=== PATIENT | female | born 1935 | race Caucasian/White ===

== ENCOUNTER 2020-10-04 05:37 | Outpatient (CLI) | payer MEDICARE ==
[~2020-10-04] VITALS: Ht 152.4 cm; Wt 54.5 kg
[~2020-10-04 05:37] MED LIST: HCT25T PO; LEVO125T PO; SIMVASTATIN PO; VERA120T6 PO
[2020-10-04] MEDS ORDERED: LISI10TA25 PO (10:07)
[2020-10-04] MEDS ORDERED: PRED5DRO17 OP (10:07)
[2020-10-04] MEDS ORDERED: [UNRECOGNIZED DRUG - OTHER] OP (10:07)
[2020-10-04] MEDS ORDERED: LATA2.5D19 OP (10:07)
== END 2020-10-04 11:50 | disposition home or self-care (01) ==
LOC: PREOP 05:37
PROVIDERS: ATTEND Surgery
DX: Z01.818 Encounter for other preprocedural examination (principal)

== ENCOUNTER 2020-10-11 09:22 | Day surgery (SDC) | payer MEDICARE ==
[2020-10-11] VITALS (14 sets, daily range): BP systolic 98–159; BP diastolic 48–78
[~2020-10-11] VITALS: Ht 152.4 cm; Wt 54.5 kg
[~2020-10-11 09:22] MED LIST changes: +LATA2.5D19 OP; +LISI10TA25 PO; +NS IV 500 ML 500 ML ONE; +PRED5DRO17 OP; +[UNRECOGNIZED DRUG - OTHER] OP
[2020-10-11] MEDS ORDERED: fentaNYL INJ 100 MCG/2 ML AMP IVP ONE (09:30)
[2020-10-11] MEDS ORDERED: MIDAZOLAM 5 MG/5 ML (VERSED) VIAL IV ONE (09:30)
[2020-10-11] MEDS ORDERED: LIDOCAINE JELLY 2% 6 ML SYRINGE MM PRN (09:30)
[2020-10-11] MEDS ORDERED: NS IV 500 ML 500 ML IV PRN (09:30)
[2020-10-11] MEDS ORDERED: MIDAZOLAM 5 MG/5 ML (VERSED) VIAL ONE ×2 (10:04→10:05)
[2020-10-11] MEDS ORDERED: fentaNYL INJ 100 MCG/2 ML AMP ONE ×2 (10:04)
[2020-10-11] MEDS ORDERED: ONDANSETRON 4 MG/2 ML (SDV) Z0FRAN ONE (10:06)
[2020-10-11] MEDS ORDERED: LIDOCAINE JELLY 2% 6 ML SYRINGE ONE (10:20)
--- NOTE | 2020-10-11 10:21 | Conscious Sedation/ASA ---
Conscious Sedation Pre-Proced Time 10:00 ASA Score 2 For ASA 3 and 4: Consider anesthesia and medical clearance. Also, for patients with a history of failed moderate sedation consider anesthesia. Airway Lungs Heart ASA score ASA 1: a normal healthy patient ASA 2: a patient with a mild systemic disease (mid diabetes, controlled hypertension, obesity ASA 3: a patient with a severe systemic disease that limits activity (angina, COPD, prior Myocardial infarction) ASA 4: a patient with an incapacitating disease that is a constant threat to life (CHF, renal failure) ASA 5: a moribund patient not expected to survive 24 hrs. (ruptured aneurysm) ASA 6: a declared brain- patient whose organs are being harvested. For emergent operations, add the letter E after the classification Mallampati Classification Grade 2 Sedation Plan Analgesia, Amnesia, Plan communicated to team members, Discussed options with patient/fam, Discussed risks with patient/fam The patient is an appropriate candidate to undergo the planned procedure, sedation, and anesthesia. The patient immediately re-assessed prior to indication. DARLINE BRIONES MD Oct 11, 2020 10:21
--- NOTE | 2020-10-11 10:22 | Progress Note-Pre Operative ---
Pre-Operative Progress Note H&P Reviewed The H&P was reviewed, patient examined and no changes noted. Date Seen by Provider: Oct 11, 2020 Time Seen by Provider: 10:00 Date H&P Reviewed: Oct 11, 2020 Time H&P Reviewed: 10:00 Pre-Operative Diagnosis: screening DARLINE Sunshine MD Oct 11, 2020 10:22
--- NOTE | 2020-10-11 10:23 | Discharge Inst-Surgical ---
D/C Lap Instructions-ANSELMO Follow up Activity as tolerated High Fiber Diet 25g or more per day Avoid Alcohol, Caffeine, Spicy [place] and Acid foods. Drink 64 fluid oz or more of fluids per day. Symptoms to Report: Fever over 101 degree F, Nausea/Vomiting If any problems/questions: Contact your physician or go to Emergency Room DARLINE BRIONES MD Oct 11, 2020 10:23
[2020-10-11] MEDS ORDERED: HYDROcodone/APAP 5 MG/325 MG (LORTAB) TAB PO PRN (10:30)
[2020-10-11] MEDS ORDERED: morphine INJ 10 MG/ML 1ML (SYR OR VIAL) IVP PRN ×2 (10:30)
[2020-10-11] MEDS ORDERED: ONDANSETRON 4 MG/2 ML (SDV) Z0FRAN IVP PRN (10:30)
[2020-10-11] MEDS ORDERED: ACETAMINOPHEN 325 MG TABLET PO PRN (10:30)
--- NOTE | 2020-10-11 10:59 | Progress Note-Post Operative ---
Post-Operative Progess Note Surgeon (s)/Expense Clerk (s) Surgeon DARLINE BRIONES MD Expense Clerk: none Pre-Operative Diagnosis screening colo Post-Operative Diagnosis mild chronic stage 1 ext and int hemorrhoids, mild-mod sigmoid diverticulosis. Procedure & Operative Findings Date of Procedure 10/11/20 Procedure Performed/Findings colonoscopy Anesthesia Type cs Estimated Blood Loss Estimated blood loss (mL): minimal Specimens/Packing Specimens Removed none DARLINE BRIONES MD Oct 11, 2020 10:59
--- NOTE | 2020-10-11 15:15 | OPERATIVE REPORT ---
DATE OF SERVICE: 10/11/2020 ATTENDING PRIMARY CARE PHYSICIAN: Daniela Mast MD PREOPERATIVE DIAGNOSIS: Screening colonoscopy. POSTOPERATIVE DIAGNOSES: Mild chronic stage I external and internal hemorrhoids and [id number] sigmoid diverticulosis. PROCEDURE: Colonoscopy. SURGEON: Darline Briones MD. ANESTHESIA: Conscious sedation. ESTIMATED BLOOD LOSS: Minimal. FINDINGS: Same as postoperative diagnosis. DISPOSITION: The patient tolerated the procedure well. INDICATIONS: The patient is an 85-year-old female known to us. We had seen her before in the past for constipation and we recommended medical management with the addition of fiber supplementation and also increased intake of water to promote soft stools on a daily basis. Her last colonoscopy was in 2010 and now, she is due for a screening colonoscopy. She does continue to report issues with constipation. She does not report any red blood per rectum nor any dark tarry stools as well as no family history of colon cancer. DESCRIPTION OF PROCEDURE: The patient was brought to the endoscopy suite, laid in the left lateral decubitus position. After adequate IV pain and sedative medications and conscious sedation anesthesia, digital rectal examination was performed. Mild chronic stage I external and internal hemorrhoids were identified, which were not actively edematous nor inflamed and no bleeding. Normal sphincter tone was felt and there were no palpable masses. The endoscope was then intubated into anus and rectum gently insufflated. The endoscope was then advanced through the valves of [place] of the rectum with no polyps or any neoplasms identified. Through the sigmoid colon, mild to moderate sigmoid diverticulosis identified. There were no mucosal inflammatory changes to indicate any active diverticulitis. The endoscope was then advanced through the remainder of the descending, transverse and ascending colon to the cecum. These segments were normal. No polyps or any neoplasms identified throughout the colon or rectum. The endoscope was then slowly withdrawn while taking a second look and suctioning of residual air with no additional findings. The patient tolerated the procedure well. We will continue to recommend a fiber supplementation, which should equal or exceed 25 grams daily as well as significant amounts of water to promote soft stools on a daily basis. If she stays asymptomatic, she does not need another colonoscopy for another 10 years. Job ID: [id number] DocumentID: [id number] Dictated Date: 10/11/2020 10:51:39 Food Order Delivery Runner Date: 10/11/2020 15:14:57 Dictated By: DARLINE BRIONES MD
== END 2020-10-11 12:00 | disposition home or self-care (01) ==
LOC: ENDO 09:22
PROVIDERS: ATTEND Surgery
DX: Z12.11 Encounter for screening for malignant neoplasm of colon (principal); K64.0 First degree hemorrhoids; K57.30 Diverticulosis of large intestine without perforation or abscess without bleeding; I10 Essential (primary) hypertension; E03.9 Hypothyroidism, unspecified; E78.00 Pure hypercholesterolemia, unspecified; M19.90 Unspecified osteoarthritis, unspecified site; I34.0 Nonrheumatic mitral (valve) insufficiency; Z79.899 Other long term (current) drug therapy; Z88.2 Allergy status to sulfonamides; Z88.8 Allergy status to other drugs, medicaments and biological substances; Z90.711 Acquired absence of uterus with remaining cervical stump